=== PATIENT | female | born 1990 | race African-American/Black ===

== ENCOUNTER 2016-12-11 06:37 | Day surgery (SDC) | payer OTHER, MEDICAID ==
--- NOTE | 2016-11-13 10:21 | HP ---
PREOPERATIVE HISTORY AND PHYSICAL: DATE OF SURGERY: 12/11/16 DATE OF OFFICE VISIT: 11/09/16 ATTENDING SURGEON: Susan Ambriz MD * (DICTATED BY MELIA SOLIS) PROCEDURES: Right knee arthroscopy, anterior cruciate ligament reconstruction, possible meniscus repair. CHIEF COMPLAINT: Right knee pain and instability. HISTORY OF PRESENT ILLNESS: Sabine is a 26-year-old female who presents to clinic for right knee pain and instability since an injury 2 years ago at a football game. The patient states that she pivoted and felt a pop in her knee, had immediate swelling, difficulty weightbearing and pain. Since that time, she has continued to have a constant aching pain. She rates it as a 2/10 in her knee. She also states that knee feels unstable. She states that she has pain and instability with running as well as pain with squatting and bending her knee in the medial aspect of her knee. She reports intermittent swelling in the knee. She reports some locking and catching. She has not noticed any improvement since 2 years ago. She has tried a brace, which was minimally helpful. She denies noticing fever, chills and is doing well otherwise. She has failed conservative measures. Therefore, agreed to undergo a right knee arthroscopy, anterior cruciate ligament reconstruction with possible meniscus repair with Dr. Ambriz on 12/11/16. PAST MEDICAL HISTORY: Denies current problems. PAST SURGICAL HISTORY: No prior surgeries. MEDICATIONS: No active medications. ALLERGIES: No known drug allergies. FAMILY HISTORY: Denies pertinent family history. SOCIAL HISTORY: She lives with her roommate. She is a student. She denies tobacco use. She reports occasional alcohol consumption. She exercises regularly. She is right hand dominant. REVIEW OF SYSTEMS: A 14-point review of systems was reviewed with the patient. Positive for current complaint, otherwise negative. Denies fevers, chills, night sweats, chest pain, shortness of breath. Denies history of DVT or PE. Denies bleeding disorder. PHYSICAL EXAMINATION GENERAL: Well-developed, well-nourished 26-year-old female, in no acute distress. Alert and oriented x3. Appropriate mood and affect. VITALS: Height 66, weight 177. Blood pressure 110/62, respiratory rate 18, temperature 97.2. BMI 28.6. HEENT: Normocephalic, atraumatic. PERRLA. Throat clear. NECK: Supple. PULMONARY: Lungs are clear to auscultation bilaterally. No wheezing, rhonchi, or rales. CARDIO: Regular rate and rhythm. S1 and S2. No murmurs, gallops, or rubs. No edema. ABDOMEN: Positive bowel sounds. Soft, nontender. MUSCULOSKELETAL: Right lower extremity, she has mild valgus deformity. She has got a mild effusion of the knee. She hyperextends the knee 2 degrees, flexion to 130 degrees. The medial joint line is tender to palpation. Calves are soft and nontender. Stable to varus and valgus stress. 2A, 2B Geni. Negative Aaron. +2 dorsalis pedis pulse. Sensation is intact to light touch distally. Left lower extremity, skin is intact. No warmth or erythema. Nontender to palpation. Full range of motion. Stable ligaments. +2 PT pulse. Sensation is intact to light touch distally. NEURO: Alert and oriented x3. Cranial nerves grossly intact. Sensation is intact to light touch. STUDIES: Multi-view x-rays revealed no evidence of acute fracture, dislocation. 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 IMPRESSION: Right knee ACL tear and medial meniscus tear. PLAN: The patient is scheduled to undergo a right knee arthroscopy, anterior cruciate reconstruction with bone patellar tendon bone autograft and possible meniscus repair. It was explained to the patient due to her ACL injury, she has 4 to 10 times higher risk of osteoarthritis. Surgical reconstruction including graft options and recovery were thoroughly discussed with the patient. Risks of surgery to include anesthesia, risk of anesthesia, blood clot , numbness, injury to blood vessels, nerve, surrounding structures, stiffness, retear, scarring were discussed with the patient. The patient has agreed to undergo the procedure. She will follow up in 6 to 8 days postop for followup and suture removal. Percocet will be used for postop pain management. MELIA SOLIS [id number]/[facility] [place] #: [id number] ALBERT
[~2016-12-11 06:37] MED LIST: Buffered Lidocaine 0.9% SYRIN* 5 ML/SYR SYRINGE INTRADERM ONE; Dexamethasone IV* 4 MG/ML 1 ML (4 MG) IV SLOW PU ONE; Famotidine IV* 10 MG/ML 2 ML (20 mg) IV ONE; Naproxen TAB* 250 MG PO ONE; Scopolamine 1.5 mg* PATCH TRANSDERM ONE
[2016-12-11] MEDS ORDERED: ceFAZolin 2 GM PREMIX (*) 2 GM/50 ML BAG IVPB ONE (06:53)
[2016-12-11] MEDS ORDERED: Scopolamine 1.5 mg* PATCH ONE (06:53)
[2016-12-11] MEDS ORDERED: Dexamethasone IV* 4 MG/ML 1 ML (4 MG) ONE (06:55)
[2016-12-11] MEDS ORDERED: Famotidine IV* 10 MG/ML 2 ML (20 mg) ONE (06:55)
[2016-12-11] MEDS ORDERED: Bupivacaine 0.25% SDV* 30 ML ONE (07:23)
[2016-12-11] MEDS ORDERED: Lidocaine 1% MPF wEPI 200,000* 30 ML SDV ONE (07:24)
[2016-12-11] MEDS ORDERED: oxyCODONE/Acetamin 5/325 MG* TAB PO PRN (07:25)
[2016-12-11] MEDS ORDERED: fentaNYL* 50 MCG/ML 2 ML VIAL (100 MCG VIAL) IV PRN (07:25)
[2016-12-11] MEDS ORDERED: PROCHLORPERAZINE INJ 5 MG/ML 2 ML VIAL IV PRN (07:25)
[2016-12-11] MEDS ORDERED: HYDROcodone/ACETAMIN 5-325 MG* 1 TAB PO PRN (07:25)
[2016-12-11] MEDS ORDERED: Midazolam* 1 MG/ML 2 ML VIAL (2 MG) ONE (07:41)
[2016-12-11] MEDS ORDERED: fentaNYL* 50 MCG/ML 2 ML VIAL (100 MCG VIAL) ONE ×2 (07:41→10:47)
[2016-12-11] MEDS ORDERED: Lidocaine 2% PF * 5 ML VIAL ONE (08:15)
[2016-12-11] MEDS ORDERED: Propofol* 10 MG/ML 20 ML BTL IV PUSH ONE (08:15)
[2016-12-11] MEDS ORDERED: Ketorolac INJ* 30 MG/ML 1 ML VIAL ONE (08:52)
[2016-12-11] MEDS ORDERED: EPHEDrine (Pressors)* 50 MG/ML VIAL ONE (10:07)
[2016-12-11] MEDS ORDERED: Ondansetron INJ* 2 MG/ML VIAL ONE (10:13)
[2016-12-11] MEDS ORDERED: KETAMINE HCL* 50 MG/ML 10 ML VIAL ONE (10:39)
[2016-12-11 12:03] VITALS: BP 123/64
--- NOTE | 2016-12-12 03:12 | OP ---
DATE OF OPERATION: 12/11/16 - [facility] DATE OF : 89 ATTENDING SURGEON: Susan Ambriz MD FACULTY NEUROPSYCHOLOGIST: MELIA Contreras. An document control assistant was needed for the entirety of the case to help with positioning, retraction, and utilized throughout all portions of the case. ANESTHESIOLOGIST: Dr. Benton Sellers. ANESTHESIA: General. PRE-OP DIAGNOSIS: Right knee grade 3 ACL with medial meniscal tear. POST-OP DIAGNOSIS: Right knee grade 3 ACL with medial meniscal tear and lateral meniscal fraying. OPERATIVE PROCEDURE: Right knee arthroscopy with: 1. ACL reconstruction using BTB autograft. 2. Medial meniscal repair. 3. Partial lateral meniscectomy. COMPLICATIONS: None. ESTIMATED BLOOD LOSS: Minimal. TOURNIQUET TIME: 32 minutes. IMPLANTS USED: Two [employer]ón [employer]hew SoftSilk anchors, one was 7 x 25 and then other was 9 x 25. Also one [employer]hew Fast Fix. INDICATIONS: Sabine Hickey is a 26-year-old female who injured her knee 2 years ago and had persistent instability in symptoms. She has failed conservative management. After extensive discussion of the risks and benefits of operative versus nonoperative treatment, she has elected to proceed with ACL reconstruction. DESCRIPTION OF PROCEDURE: The patient was greeted in the preoperative area by the attending surgeon. Correct extremity was marked and consent was confirmed. The patient was brought back to the operating suite where she was placed in the supine position on the operating room table. She then underwent general anesthesia with LMA intubation after which the patient's knee was examined. She hyperextends from about 3 degrees and flexes to 140 degrees, stable to varus and valgus stress, 2b Geni, negative posterior drawer. She was positioned low on the bed, a everett bag was placed to keep the knee at 90 degrees lateral post disposition. Unsterile tourniquet was placed proximally at the thighs. The right leg was prepped and draped in the usual sterile fashion. After appropriate surgical pause indicating side, site, procedure, and administration of antibiotics, the knee was intra- articularly injected with 1% lidocaine with epi. The limb was exsanguinated and the tourniquet was inflated to 250 mmHg. A midline incision was then made with a 15 blade along the patellar tendon. Soft tissues were carefully dissected to expose the paratenon. Care was taken to preserve as many layers as possible for a good layered closure. Paratenon was then incised using a 15 blade. Soft tissues were carefully protected again for layers. The patellar tendon was identified, measured about 37 mm in width, the center 10 mm was then harvested using a 10 blade. Bone blocks were harvested proximally and distally. The patellar bone block was harvested for a width of 9 mm and a length of about 26 mm. The tibial bone block was 10 x 35 mm. The graft was then prepared in the back table by the attending surgeon. Meanwhile, the document control assistant was closing the patellar tendon with 0 Vicryl in a closed layer with care to prevent any baja. The graft was then wrapped in a saline soaked gauze and protected on the back table. Attention was directed to the arthroscopy portion. The lateral portal was made through the capsule. The scope was introduced in the joint. The patellofemoral joint had grade 0 to 1 changes with slight lateral subluxation in the patella. The medial and lateral gutters were intact without any loose debris or loose tissue. The scope was brought to the notch. The ACL had completely torn off the femoral side and scarred to the PCL. The scope was brought to the medial compartment. There was a mild amount of fissuring about the medial femoral condyle. The medial meniscus was a good quality tissue, but it was probed after making the anteromedial portal and there was an unstable full thickness tear in the red-white zone. This was then carefully rasped using the bowel rasp to allow for bleeding tissue and then one [employer]ón [employer]hew 360 Fast-Fix was then used to secure this. This was found to be stable. The tibial plateau had grade 0 changes. Attention was directed to the lateral compartment. Lateral femoral condyle had grade 0 to 1 changes. Lateral plateau had small areas of grade 2 changes. The lateral meniscus was intact, but there was some fraying. The shaver was used to debride this back. Attention was then directed to the ACL. The knee was placed in 90 degrees. The ACL stump was then removed using biters and epifanio. The medial portion of the lateral femoral condyle was prepared with an electrocautery device as well as the shaver to expose the bone. There was a nice white notch, therefore no notchplasty needed to be done. A starting awl was then used to place a reference point for marking where the femoral tunnel should be. This was then checked by changing the portals from the lateral to the medial portal and visualized. Attention was then directed to the tibial portion. The tip-to-tip guide set at about 47 degrees was then placed in the center of the foot print based on the medial and lateral menisci posterior portions as well as the PCL position. Once the optimal position was placed, a guidewire was placed in the center of the footprint and a full bore 10 mm reamer was then used to drill the tunnel, excess bone was saved for later bone graft. The tunnel was then rasped and prepared and found to be in good position. The attention was directed to the femoral portion. The knee was then carefully hyperflexed with the [employer]hew straight guidewire placed in the center of the footprint. A Beath pin was then drilled bicortically all through the skin in an appropriate position to the IT band. This was then overdrilled with a size 9 mm low profile reamer to a depth of about 27 to 28 mm. The tunnel was examined and found to have good back wall and was a good concentric tunnel. All excess bone and debris was removed. The business manager was then used to notch the tunnel. A free #2 Ethibond suture was placed through the islet of the Beath pin and then advanced through the knee and then in an anterograde fashion out through the tunnel. The graft was then brought to the operating table and under arthroscopic and direct visualization, the graft was then passed through the tibial tunnel into the femoral tunnel and was found to be well seated. The graft was then secured with tension on the femoral and tibial plugs with a 7 x 25 mm screw, this had excellent purchase. The knee was then taken to full extension, found not to impinge and the patient was able to hyperextend. The knee was then cycled approximately 15 times with no change in the graft. The scope was brought into the joint to examine and there were no changes. The knee was then placed in about 10 degrees of flexion with tension on the tibial sutures. The graft was secured with a 9 x 25 mm SoftSilk screw. The knee was then taken through range of motion and the Geni was assessed and found to be stable. The scope was brought back to the joint and allowed to visualize the joint and the graft had not moved. Final images were obtained. The excess bone block was removed from the tibial portion and saved for bone graft. The tibial screw was placed with excellent purchase. The wounds were copiously irrigated. Bone graft was placed at the patellar defect and then whatever was remaining was placed in the tibial defect. The 0- Vicryl was used to close the fascia over the bone block. The paratenon was closed with 2-0 Vicryl in a running fashion. The skin was closed in layers with 2-0 Vicryl subcu and 3-0 Monocryl for a running subcuticular stitch. Sterile dressings were applied, the wound was injected with 0.25% Marcaine plain. Intraarticularly, the knee was injected with 0.25% Marcaine plain for a total of 30 cc. Sterile dressings were applied. Cryo/Cuff was applied and she was placed in a hinged knee brace with range of motion limited from 0 to 90 degrees. She was awoken from anesthesia and transferred to PACU in stable condition. POSTOPERATIVE PLAN: She will be nonweightbearing for 4 weeks. Range of motion limited to 0 to 90 degrees. She will be discharged on pain medications as well as antibiotics. She will also be given an aspirin to be taken every day for about 10 days. DVT prophylaxis considered but deferred due to no previous personal or family history, but she will be placed on aspirin for about 10 days. I will see her back in 6 to 8 days. [id number]/[facility] #: [id number] ALBERT
[2016-12-14] MEDS ORDERED: Scopolomine PATCH Remove* 1 NOTE MISC PATCH OFF ONE (06:00)
== END 2016-12-11 12:59 | disposition home or self-care (01) ==
LOC: OREAST 06:37
PROVIDERS: ATTEND Orthopaedic Surgery
DX: S83.511A Sprain of anterior cruciate ligament of right knee, initial encounter (principal); S83.241A Other tear of medial meniscus, current injury, right knee, initial encounter; S83.281A Other tear of lateral meniscus, current injury, right knee, initial encounter; X50.9XXA Other and unspecified overexertion or strenuous movements or postures, initial encounter; Y92.9 Unspecified place or not applicable
CPT/HCPCS: 81025; A9270-GY; C1713; J0690; J1100; J1885; J2001; J2250; J2405; J2704; J3010